=== PATIENT | female | born 1950 | race Caucasian/White ===

== ENCOUNTER 2018-11-05 08:28 | Inpatient (IN) | payer BC, MEDICARE ==
[~2018-11-05 08:28] MED LIST: ROPIVACAINE HCL/PF 100 MG, EPINEPHrine 0.2 MG, KETOROLAC TROMETHAMINE 30 MG in NORMAL S... IJ PRN; ceFAZolin SODIUM 1 GM VIAL IV PRN
[2018-11-05] MEDS: RINGER'S SOLUTION,LACTATED 1,000 ML IV PRN ×2 (09:09→11:45)
--- NOTE | 2018-11-05 11:13 | ANES ---
Anesthesia Pre Procedure Eval Vitals/Labs: Last Vital Signs Temp 36.6 C 11/05/18 08:40 Pulse 89 11/05/18 08:40 Resp 16 11/05/18 08:40 BP 141/78 11/05/18 08:40 Pulse Ox 99 11/05/18 08:40 HOME MEDICATIONS Ferrous Sulfate 325 mg PO BID 11/13/15 [Last Taken 11/05/17] Cholecalciferol (Vitamin D3) [Vitamin D3] 2,000 unit PO DAILY 11/05/17 [Last Taken 11/05/17 12:00] Psyllium Husk (with Sugar) [Metamucil] 1 pkt PO BID 11/05/17 [Last Taken 11/05/17 09:00] Tacrolimus [Protopic] 1 appl TP BID PRN 04/11/18 [Last Taken Unknown] Triamcinolone Acetonide [Nasacort] 2 spray NS DAILY PRN 04/11/18 [Last Taken Unknown] lisinopril 10 mg tablet 10 mg PO DAILY #90 tab 05/30/18 [Last Taken 11/05/18 08:30] hydrocodone 5 mg-acetaminophen 325 mg tablet 1 tab PO ONCE PRN tab 08/02/18 [Last Taken Unknown] alprazolam 0.25 mg tablet 0.25 mg PO TID PRN #30 tab 09/13/18 [Last Taken Unknown] atorvastatin 20 mg tablet 20 mg PO DAILY #90 tab 09/13/18 [Last Taken Unknown] citalopram 10 mg tablet 10 mg PO DAILY #90 tab 09/13/18 [Last Taken Unknown] acetaminophen 500 mg tablet 500 mg PO Q6H PRN 10/02/18 [Last Taken 11/05/18 03:00] cyclobenzaprine 10 mg tablet 10 mg PO TID PRN #90 tab 10/10/18 [Last Taken Unknown] alendronate 70 mg tablet 70 mg PO QWEEK #12 tab 10/26/18 [Last Taken Unknown] Allergies/Adverse Reactions: Allergies Allergy/AdvReac Type Severity Reaction Status Date / Time cinnamon Allergy Swelling Verified 11/05/18 08:50 (Other) peppermint Allergy coughing Verified 11/05/18 08:50 swelling sneezing jessica Allergy coughing Verified 11/05/18 08:50 swelling sneezing tree and shrub pollen Allergy sneezing Verified 11/05/18 08:50 coughing nickel AdvReac Unknown Contact Verified 11/05/18 08:50 Dermatitis neosporin Allergy hives Uncoded 11/05/18 08:50 vanilla Allergy coughing Uncoded 11/05/18 08:50 swelling sneezing fragrances AdvReac Coughing, Uncoded 11/05/18 08:50 Generalized Swelling - Planned Procedure Planned Procedure: Left Knee Poly Exchange Medical History (Last Reviewed 11/05/18 @ 11:08 by Kevin Clayton CRNA) MISSED Onset Date: Unknown Arthritis Onset Date: Unknown Asthma Onset Date: Unknown Back pain Onset Date: 09/13/02 Chronic pain Onset Date: Unknown Colonoscopy refused Onset Date: Unknown Eczema Onset Date: Unknown Femoral fracture Onset Date: 11/21/17 left Generalized anxiety disorder Onset Date: Unknown Hypertension Onset Date: Unknown Knee pain, left Onset Date: 04/23/18 Surgical History (Last Reviewed 11/05/18 @ 08:49 by Niesha Wray) History of section, unknown scar Onset Date: ~09/13/12 S/P ACL surgery Onset Date: Unknown S/P foot surgery, left Onset Date: Unknown Status post closed reduction with internal fixation Onset Date: 11/06/17 closed reduction, cephalo-medullary fixation left intertrochanteric femur fracture Dr. Galindo S/P total knee arthroplasty Onset Date: 04/2018 left Family History (Last Reviewed 11/05/18 @ 11:08 by Kevin Clayton CRNA) Father Heart problem Mother Lung cancer Uterine cancer Breast cancer - Family Anesthesia History Family History:: no untoward family reactions to anesthesia, no familial bleeding tendencies, no family history of clotting disorders, no family history of premature - Airway/Neck/Teeth Within Normal Limits:: Yes Teeth Condition: intact Mallampatti Score: 2 Thyromental (T-M) distance: > 6 cm Mandibulo Hyoid distance: > 3 cm - Respiratory Respiratory Physical: lungs clear Smoking Status: Never smoker Discussed smoking cessation including day of surgery: No Sleep Apnea currently treated: No Sleep Apnea by current assessment: No Comments:: Recopied from - Cardiovascular Cardiac History: hypertension Tolerate Activity: Fair Heart Sounds: S1 & S2, Regular - Anesthesia Assessment and Plan ASA Class: PS, II Anesthesia Type Plan: Block - adductor canal block for post op pain relief, Spinal - Recopied from [id number] interview Planned difficult intubation/equipment available: No
[2018-11-05] MEDS ORDERED: MAGNESIUM HYDROXIDE 30 ML UDC PO PRN (11:42)
[2018-11-05] MEDS ORDERED: ACETAMINOPHEN 500 MG TABLET PO PRN (11:42)
[2018-11-05] MEDS ORDERED: diphenhydrAMINE HCL 50 MG/ML VIAL IV PRN (11:42)
[2018-11-05] MEDS ORDERED: MAG HYDROX/ALUMINUM HYD/SIMETH 30 ML UDC PO PRN (11:42)
[2018-11-05] MEDS ORDERED: DEXTROSE 5%-LACTATED RINGERS 1,000 ML IV PRN (11:42)
[2018-11-05] MEDS ORDERED: MORPHINE SULFATE 2 MG/ML DISP.SYRIN IV PRN (11:42)
[2018-11-05] MEDS ORDERED: ZOLPIDEM TARTRATE 5 MG TABLET PO PRN (11:42)
[2018-11-05] MEDS ORDERED: ONDANSETRON HCL/PF 2 MG/ML VIAL IV PRN (11:42)
[2018-11-05] MEDS ORDERED: ALPRAZolam 0.25 MG TABLET PO PRN (11:44)
[2018-11-05] MEDS ORDERED: CYCLOBENZAPRINE HCL 10 MG TABLET PO PRN (11:44)
[2018-11-05] MEDS ORDERED: TRIAMCINOLONE ACETONIDE NS PRN (11:44)
[2018-11-05] MEDS ORDERED: TACROLIMUS TP PRN (11:44)
--- NOTE | 2018-11-05 11:53 | OR ---
Operative Report - Dictated Report Narrative: Date: 11/05/2018 Preoperative diagnosis: Left knee pain and instability status post total knee arthroplasty Postoperative diagnosis: Left knee pain and instability status post total knee arthroplasty Procedure: Revision of polyethylene and partial synovectomy left Total knee arthroplasty. Surgeon: Jevon Galindo M.D. Inclusion Internship: Arnulfo Hanley PA-C (provided and essential set of skilled, educated hands that assisted with transfer, positioning, prepping, draping, manipulation, retraction, placement of jigs, injection, insertion of implants, irrigation, closure wounds, and dressings all of which could not be performed by the available surgical crew) Anesthesia: Spinal with regional block and local periarticular joint injection. Complications: None Specimens: Polyethylene insert for disposal. Culture 1 Estimated blood loss: Minimal. Tourniquet time: 50 Minutes at 325 millimeters of mercury. Retained implants: Depuy Attune 7 by 12 millimeter posterior stabilized cross-linked tibial insert. Indications: Mrs. Arrieta is a 68-year-old female who presenting underwent a left total knee arthroplasty and developed pain and instability with hypermobility. This patient was followed in my clinic for period of time with significant complaints of left knee pain consistent with instability with a negative infection workup. She had failed conservative measures including, but not limited to, activity modification, passage of time, medications, and other con servative measures. Patient wished to proceed with surgical treatment. The risks, benefits, and alternatives were discussed in clinic. The risks of , blood clots, bleeding, infection, nerve/tendon blood vessel/ injury, malposition of components, intraoperative fracture, postoperative limited range of motion, persistent pain, failure of components, and need for additional procedures. Patient wished to proceed consent was obtained after answering all questions. Procedure: After marking the correct extremity on the floor, the patient was taken to the operating room. A timeout was performed. IV antibiotics consisting of Ancef were administered prior to the procedure. A regional followed by spinal anesthetic was induced by anesthesia, per my request, on the operative table with all bony prominences well-padded. Loyd catheter was placed, and a bump was placed under the operative side buttock. SCDs and JESSICA hose were utilized on the nonoperative leg. A well-padded tourniquet was applied to the operative thigh. The operative leg was then pre-scrubbed with alcohol, prepped, and draped in a standard sterile fashion. After exsanguinating the extremity with an Esmarch bandage, the tourniquet was inflated. After marking out the anterior knee for standard incision centered over the patella, the skin was incised utilizing her prior incision and dissected down to the joint retinaculum. The joint retinaculum was marked out and there were no signs of retained sutures or infection, and a standard medial parapatellar arthrotomy was then made. The most proximal aspect of the quadriceps tendon and the patella tendon insertion were protected from release. A partial synovectomy was performed as well as a resection of the remaining infrapatellar fat pad. The joint did not show any signs of infection. A partial synovectomy was performed removing the hypertrophic thickened synovial lining. The femoral and tibial components were evaluated and showed no signs of loosening or wear. With the joint open the knee was examined and there is notable gapping both medial and lateral varus and valgus stressing at multiple flexion points and her knee went into recurvatum approximately 10. The prior polyethylene was removed without any complications. He appeared to be no signs of infection posteriorly. A culture was obtained. The knee was then thoroughly irrigated. Trial Benny a final insert was utilized and a 12 mm insert gave good stability and resolution of her instability. This felt that this was the appropriate sized implants and after thoroughly irrigating the joint and placing a periarticular joint injection of ropivacaine, Toradol, epinephrine, the final polyethylene was inserted in the place. The knee was then thoroughly irrigated. The knee was pl aced through a range of motion with the insert to ensure appropriate range of motion and stability. Final range of motion was approximately 0 to 120 degrees. The knee was again thoroughly irrigated. The knee was then placed over a triangle and the arthrotomy was closed with interrupted #1 Vicryl after thoroughly irrigating the joint. The deep and subcutaneous tissues were closed with interrupted 0 and 3-0 Vicryl respectively. Skin was closed with a running subcutaneous 3-0 Monocryl and Prineo Dermabond dressing. 4 x 4's, Sof-Rol, and a full leg Vince wrap were applied. All sponge, needle, blade, and instrument counts were correct prior to closing the wounds. Postoperative condition: The patient was awoken and transferred to the postanesthesia care unit in stable condition. Plan is to be admitted to the inpatient medical/surgical floor postoperatively for 24 hours of IV antibiotics, physical therapy, occupational therapy, and medical comanagement. Patient will be weightbearing as tolerated with range of motion as tolerated. DVT prophylaxis will be with SCDs, JESSICA hose, and pharmacological anticoagulation. Anticipated hospital stay is approximately 1-3 days.
--- NOTE | 2018-11-05 12:02 | ANES ---
Post Anesthesia Discharge - Transfer of Care Transfer of Care handoff given to nurse: Yes - Discharge from PACU Discharge from PACU when meets criteria: Yes - Comfortable in PACU.
--- NOTE | 2018-11-05 12:06 | ANES ---
Anesthesia Procedure Note Procedure Note: ANESTHESIA PROCEDURE NOTE Date of Procedure: 05/18/2019 Time of procedure: 10:15. Performed by: Kevin Clayton CRNA, MSN Adjunct Professor: Corrie Holloway RN. Preprocedure diagnosis: Post knee surgery pain relief. Post procedure diagnosis: Same. Procedure: Left Adductor Canal Block. Indications: Post left knee surgery pain relief. Findings: See below. Details of the procedure: The patient was brought to OR #4 and placed in supine position. The patient's left femoral area to the knee was prepped with chlorhexidine and using ultrasound guidance the left femoral artery was identified at approximately the proximal one third femur. Under ultrasound guidance the saphenous nerve was approached with visualization of a 4 inch shielded block needle approaching the adductor canal just under the sartorius muscle. Once saphenous nerve was identified with proximity to the needle tip, the saphenous nerve was surrounded with 20 mL bupivacaine 0.25% with 1-200,000 epinephrine. Please see radiology/ultrasound report for details and retained images of the procedure. EBL: 0 Fluids: N/A. Specimen: N/A. Post procedure condition: The patient tolerated the procedure well. No complications were noted. Thank you for this consultation. Kevni Clayotn CRNA, MSN
[2018-11-05] MEDS ORDERED: KETOROLAC TROMETHAMINE 15 MG/ML VIAL IV SCH (12:45)
[2018-11-05] MEDS: ceFAZolin SODIUM 1 GM in DEXTROSE 5 % IN WATER 100 ML IV SCH ×4 (12:49→19:01)
--- NOTE | 2018-11-05 13:46 | ANES ---
Post Anesthesia Assessment - Vital Signs Vitals: Last Vital Signs Temp 36.2 C 11/05/18 12:37 Pulse 79 11/05/18 13:07 Resp 16 11/05/18 13:07 BP 133/86 11/05/18 13:07 Pulse Ox 93 11/05/18 13:07 Airway Patency: Normal - Mental Status Level Of Consciousness: Awake, Alert - Pain Level Pain Score: 0 - N/V Assessment Nausea/Vomiting Presence: None Dehydration:: No
[2018-11-05] MEDS: oxyCODONE HCL/ACETAMINOPHEN 1 TAB TABLET PO PRN ×2 (18:57→23:22)
[2018-11-05] MEDS: PSYLLIUM SEED 1 PACKET PACKET PO SCH (20:27)
[2018-11-05] MEDS: FERROUS SULFATE 325 MG TABLET PO SCH (20:27)
[2018-11-05] MEDS ORDERED: SENNOSIDES/DOCUSATE SODIUM 1 TAB TABLET PO SCH (21:00)
[2018-11-05] MEDS ORDERED: CITALOPRAM HYDROBROMIDE 10 MG TABLET PO SCH (21:00)
[2018-11-05] MEDS ORDERED: ROSUVASTATIN CALCIUM 10 MG TABLET PO SCH (21:00)
[2018-11-06] MEDS: ceFAZolin SODIUM 1 GM in DEXTROSE 5 % IN WATER 100 ML IV SCH ×2 (01:04)
[2018-11-06] MEDS: oxyCODONE HCL/ACETAMINOPHEN 1 TAB TABLET PO PRN ×2 (05:01→11:05)
[2018-11-06 05:27] LABS: Hematocrit 33.8 % (37.0-47.0); Hemoglobin 10.7 gm/dL (12.5-16.0); Mean Cell Volume 99.7 fl (78-100); Mean Corpuscular Hemoglobin 31.6 pg (27-31); Mean Corpuscular Hgb Conc 31.7 g/dl (32-36); Mean Platelet Volume 8.7 fl (8-12.5); Platelet Count 222 K/mm3 (150-450); Red Blood Count 3.39 M/mm3 (4.2-5.4); Red Cell Distribution Width 13.2 % (11.5-14.0); White Blood Count 9.2 K/mm3 (4.0-10.5)
[2018-11-06 05:40] LABS: Anion Gap 10.5 mmol/L (6.8-13.8); BUN/Creatinine Ratio 20.3 (9.0-21.6); Calcium * 8.9 mg/dL (7.9-10.9); Carbon Dioxide 26.1 mmol/L (24-32.6); Estimated Creat Clear 34.1; Potassium 4.6 mmol/L (3.4-4.6)
[2018-11-06] MEDS: FERROUS SULFATE 325 MG TABLET PO SCH (08:34)
[2018-11-06] MEDS: PSYLLIUM SEED 1 PACKET PACKET PO SCH (08:35)
[2018-11-06] MEDS ORDERED: CHOLECALCIFEROL 1,000 UNIT CAPSULE PO SCH (09:00)
[2018-11-06] MEDS ORDERED: LISINOPRIL 10 MG TABLET PO SCH (09:00)
--- NOTE | 2018-11-06 12:13 | DS ---
(1) Acute blood loss anemia Problem: Acute (2) Status post revision of total replacement of left knee Problem: Acute (3) Chronic renal failure, stage 3 (moderate) Problem: Acute (4) Hyperlipidemia Problem: Chronic (5) Hypertension Problem: Chronic (6) Acute blood loss anemia Problem: Acute (7) Status post total left knee replacement Problem: Acute Description of Stay: Mrs. Vargas was admitted to the floor after undergoing revision polyethylene left total knee arthroplasty. Tolerated this well. Was admitted to the floor postoperatively for 24 hours of IV antibiotics, pain control, medical comanagement, and occupational and physical therapy. OT and PT were consulted to assist with activities of daily living and ambulation. Was made weightbearing as tolerated with range of motion as tolerated. Pain was initially controlled with IV regimen. This was transitioned to oral once tolerating a by mouth intake. Was resumed on home diet and medications. Had a Loyd catheter inserted and the operating room which was discontinued on postoperative day 1. SCD and JESSICA hose were utilized for DVT prophylaxis. Vital signs remained stable to the hospital course. Serial labs were obtained which showed a final hemoglobin of 10.7 grams. BMP was reviewed and was stable. Physical examination throughout the hospital course showed an extremity that had sensation that was intact to light touch, palpable pulses, a benign wound, motor intact to the toes, ankle, and knee. Knee range of motion was approximately 5 degrees to 75 degrees. Once an oral pain regimen was tolerated and physical therapy goals were met, it was felt that they were stable for discharge to home. Instructions: Continue with weightbearing as tolerated and range of motion as tolerated. It is OK to shower on the wound if it is not draining. If you note any drainage or for comfort you can cover with dry gauze and tape. Change every 2-3 days as needed. Continue with physical therapy. Resume home diet. Report any fever over 101.5 Fahrenheit, uncontrolled pain, increased drainage, foul odor of drainage, new or increased calf pain or shortness of breath, or any other significant complaints. Patient reports she is unable to take aspirin due to stage III chronic renal failure. Continue with JESSICA hose on the operative extremity until instructed otherwise. No driving until instructed otherwise. Follow up in approximately 10-14 days. Procedures Performed: see notes below List Procedures: Revision of polyethylene left total knee Results and Findings: Pending Mircobiology Results 11/05/18 11:20 Knee - Left Miscellaneous Culture - Preliminary No Growth Lab Pending Results 11/06/18 05:15: WBC 9.2, RBC 3.39 L, Hgb 10.7 L, Hct 33.8 L, MCV 99.7, MCH 31.6 H, MCHC 31.7 L, RDW 13.2, Plt Count 222, MPV 8.7 11/06/18 05:15: Sodium 136, Plasma Sodium 136, Potassium 4.6, Chloride 104, Carb on Dioxide 26.1, Anion Gap 10.5, BUN 30 H, Creatinine 1.48 H, Est GFR (Non-Af Amer) 38 L, BUN/Creatinine Ratio 20.3, Random Glucose 103, Calcium 8.9 Disposition: Home self-care Condition: Good Discharge Diet: Low salt, Low fat/chol Referrals: Priti Lawson MD [Primary Care Provider] - Additional Patient Instructions (free text): Follow up Physical Therapy at [facility] rehab department on ......... Follow up Dr Galindo Orthopedic office appointment on Monday11/27/18 at 9:45am. Prescriptions (Any new or edited meds): oxyCODONE HCL/ACETAMINOPHEN [Percocet 5 MG/325 MG] 2 tab PO Q4H PRN #60 tab PRN Reason: Moderate Pain (Pain Scale 4-6) Sennosides/Docusate Sodium [Senokot-S] 2 tab PO HS #30 tablet Complete Home Medications List: Complete Home Medication List: Ferrous Sulfate 325 mg PO BID 11/13/15 Cholecalciferol (Vitamin D3) [Vitamin D3] 2,000 unit PO DAILY 11/05/17 Psyllium Husk (with Sugar) [Metamucil] 1 pkt PO BID 11/05/17 Tacrolimus [Protopic] 1 appl TP BID PRN 04/11/18 Triamcinolone Acetonide [Nasacort] 2 spray NS DAILY PRN 04/11/18 lisinopril 10 mg tablet 10 mg PO DAILY #90 tab 05/30/18 alprazolam 0.25 mg tablet 0.25 mg PO TID PRN #30 tab 09/13/18 atorvastatin 20 mg tablet 20 mg PO DAILY #90 tab 09/13/18 citalopram 10 mg tablet 10 mg PO DAILY #90 tab 09/13/18 cyclobenzaprine 10 mg tablet 10 mg PO TID PRN #90 tab 10/10/18 alendronate 70 mg tablet 70 mg PO QWEEK #12 tab 10/26/18 Sennosides/Docusate Sodium [Senokot-S] 2 tab PO HS #30 tablet 11/06/18 oxyCODONE HCL/ACETAMINOPHEN [Percocet 5 MG/325 MG] 2 tab PO Q4H PRN #60 tab 11/06/18
[2018-11-06 13:37] VITALS: BP 141/86
[2018-11-07] MEDS ORDERED: ASPIRIN 325 MG TABLET.DR PO SCH (21:00)
== END 2018-11-06 13:39 | disposition home or self-care (01) | DRG 467 ==
LOC: MS 08:28
PROVIDERS: ADMIT Orthopaedic Surgery; ATTEND Orthopaedic Surgery
CPT/HCPCS: 36415; 73560; 80048; 85027; 87070; 97110; 97116; 97161; 97165